=== PATIENT | female | born 1995 | race Caucasian/White ===

== ENCOUNTER 2024-06-05 19:04 | Emergency (ER) | payer BC, SELFPAY ==
[2024-06-05 19:06] VITALS: BP 140/102; PULSE 67; RESP 20; TEMP 36.6; O2SAT 99; BMI 31.8
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
[2024-06-05] MEDS: OXYCODONE 5MG IMMEDIATE RELEASE TABLET 5 MG PO (19:39)
[2024-06-05] MEDS: METHOCARBAMOL 500MG TABLET 500 MG PO (19:39)
[2024-06-05] MEDS: ACETAMINOPHEN 1,000MG/100ML VIAL 1000 MG IV (19:40)
[2024-06-05 20:17] VITALS: BP 146/100; PULSE 72; O2SAT 100
--- NOTE | 2024-06-05 20:17 | PC.NURSE ---
c spine cleared per er provider and c collar removed
[2024-06-05 21:42] VITALS: BP 144/91; PULSE 61; RESP 20; TEMP 36.7; O2SAT 98
== END 2024-06-05 21:44 | disposition home or self-care (01) ==
PROVIDERS: Emergency Provider Emergency Medicine
DX: S19.80XA Other specified injuries of unspecified part of neck, initial encounter (principal); M25.512 Pain in left shoulder; X50.0XXA Overexertion from strenuous movement or load, initial encounter
CPT/HCPCS: 70450; 72125; 72128; 73000; 73030; 96374; 99285; J0131

== ENCOUNTER 2024-07-01 16:56 | Outpatient (CLI) | payer BC, SELFPAY ==
--- NOTE | 2024-07-01 17:00 | MR_ITS ---
PROCEDURE INFORMATION: Exam: MR Left Upper Extremity Joint Without Contrast; Shoulder Exam date and time: 07/01/2024 4:58 PM Age: 28 years old Clinical indication: Pain; Shoulder; Left; Additional info: Left shoulder injury, pain, decreased rom. Weakness in arm TECHNIQUE: Imaging protocol: Magnetic resonance imaging of the left upper extremity without contrast. Exam focused on the shoulder. COMPARISON: CR XR SHOULDER LT MIN 2V 06/05/2024 7:40 PM FINDINGS: Bones/joints: There is bone marrow edema restricted to the distal clavicle with adjacent soft tissue swelling suggestive of distal clavicular osteolysis. Ac joint is fairly well preserved. Remaining osseous structures are unremarkable. Glenoid labrum: Unremarkable. No evidence of tear. Supraspinatus tendon: Unremarkable. No evidence of tear. Infraspinatus tendon: Unremarkable. No evidence of tear. Subscapularis tendon: Unremarkable. No evidence of tear. Teres minor tendon: Unremarkable. No evidence of tear. Tendon of biceps brachii: Unremarkable. No evidence of tear. Glenohumeral ligaments: Unremarkable. Soft tissues: Unremarkable. IMPRESSION: Findings suspicious for distal clavicular osteolysis as discussed above.
== END 2024-07-01 23:59 | disposition home or self-care (01) ==
LOC: RAD 16:56
PROVIDERS: PCP Nurse Practitioner Family; Visit Provider Nurse Practitioner Family
DX: M25.512 Pain in left shoulder (principal); M25.612 Stiffness of left shoulder, not elsewhere classified
CPT/HCPCS: 73221

== ENCOUNTER 2024-08-09 18:34 | Emergency (ER) | payer BC, OTHER, SELFPAY ==
[2024-08-09 19:15] VITALS: BP 135/93; PULSE 80; RESP 20; TEMP 36.9; O2SAT 98; BMI 33.0
[2024-08-09 19:18] LABS: Apearance,Urine Clear (Clear); Bilirubin,Urine Negative (Negative); Blood, Urine Negative (Negative); Color,Urine Yellow (Yellow); Glucose,Urine (UA) Negative (Negative); Ketones,Urine Negative (Negative); Protein,Urine Negative (Negative); Specific Gravity, Urine 1.025 (1.005-1.030); UTC Leukocyte Esterase,Urine Trace (Negative); UTC Nitrate,Urine Negative (Negative); Urobilinogen,Urine 0.2 EU/dl (0.2)
--- NOTE | 2024-08-09 19:18 | ED_ITS ---
Discharge Plan Disposition Patient Disposition: Home, Self-Care Condition: Good Prescriptions Prescriptions: New fluconazole 150 mg tablet 150 mg PO ONCE Qty: 1 3RF phenazopyridine [Pyridium] 200 mg tablet 200 mg PO Q8H 2 Days Qty: 6 0RF ciprofloxacin HCl [Cipro] 500 mg tablet 500 mg PO BID 7 Days Qty: 14 0RF ondansetron 4 mg Tablet,Disintegrating 4 mg PO Q8H PRN (Reason: Nausea) Qty: 12 0RF Referrals Follow up/Referrals: Nyla Funes APRN [Primary Care Provider] - See instructions Activity Restrictions/Add. Instructions Additional Instructions/Restrictions: Drink plenty of fluids. Take tylenol or ibuprofen for pain or fever. Take the medications as directed. Follow up with your regular doctor. GO TO THE ER FOR ANY WORSENING SYMPTOMS The pyridium will make your urine turn orange, this is an expected side effect. It will stain your clothes if it comes into contact with them. We will culture the urine. That will tell what bacteria is causing your infection and which antibiotics will treat it best.This test takes 3 days to complete. Clinical Impressions Clinical Impression: UTI (urinary tract infection) Instructions Patient Instructions: Urine Culture, DI for Urinary Tract Infection (UTI), Phenazopyridine Print Language Print Language: Upper Sorbian Discharge ED Provider: Franklin Narvaez [facility] General Stated complaint: possible uti Mode of Arrival: Ambulatory Source of Information: Patient Time Seen by Provider: 08/09/24 19:18 Description of Symptoms (Recalled from Triage Doc. by RN): UTI S/S, HAS BEEN TREATED MULT. TIMES FOR UTIS SINCE NOVEMBER HEENT Symptoms (Recalled from RN notes): No Resp Symptoms (Recalled from RN notes): No Skin Symptoms (Recalled from RN notes): No MS Symptoms (Recalled from RN notes): No Functional Status (Recalled from RN notes): WNL Related Data Previous Rx's ?Medication ?Instructions ?Recorded ciprofloxacin HCl 500 mg tablet 500 mg PO BID 7 days #14 tabs 08/09/24 (Cipro) fluconazole 150 mg tablet 150 mg PO ONCE 1 dose #1 tab 08/09/24 ondansetron 4 mg disintegrating 4 mg PO Q8H PRN Nausea #12 tabs 08/09/24 tablet phenazopyridine 200 mg tablet 200 mg PO Q8H 2 days #6 tabs 08/09/24 (Pyridium) Allergies Allergy/AdvReac Type Severity Reaction Status Date / Time amoxicillin (From Augmentin) Allergy Verified 07/11/24 10:17 clavulanic acid (From Allergy Verified 07/11/24 10:17 Augmentin) Worker's Comp Is this a Worker's Comp case?: No [facility] Disclaimer: The information contained in this section may have been updated after the patient was seen, as this information can be updated by other users. Surgical History History of appendectomy History of tubal ligation Hx of cholecystectomy Social History Smoking Status: Current every day smoker alcohol intake: never current occupational status: employed ROS Obtained: Yes All systems reviewed & no additional complaints except as documented Constitutional Constitutional: Reports system reviewed and no additional complaints, except as documented, Denies chills and Denies fever(s) Eyes Eyes: Denies eye discharge ENT Ears, Nose, Mouth, and Throat: Denies dysphagia, Denies sore throat and Denies throat swelling Cardiovascular Cardiovascular: Denies chest pain and Denies dyspnea Respiratory Respiratory: Denies chest congestion, Denies cough and Denies dyspnea Gastrointestinal Gastrointestingal: Denies abdominal pain, constipation, diarrhea, dysphagia, nausea or vomiting Genitourinary Female Genitourinary: Reports as per HPI, Reports dysuria, Reports urinary frequency, Denies urinary incontinence, Reports urinary hesitancy and Reports urinary urgency Musculoskeletal Musculoskeletal: Denies arthralgias and Reports back pain Integumentary/Breasts Skin/Breast: Denies rash Neurologic Neurologic: Denies paresthesias Allergic/Immunologic Allergic/Immunologic: Denies throat swelling Physical Exam General General appearance: alert and in no apparent distress Head Head exam: atraumatic and normocephalic Eye Eye exam: Present normal appearance, PERRL and EOMI ENT ENT exam: Present normal exam, mucous membranes moist, TM's normal bilaterally and normal external ear exam Neck Neck exam: Present normal inspection, full ROM and trachea midline; Absent tenderness, meningismus or lymphadenopathy Chest Chest inspection: Present normal inspection and symmetric chest wall rise; Absent tenderness Respiratory Respiratory exam: Present normal lung sounds bilaterally; Absent respiratory distress, wheezes or stridor Cardiovascular Cardiovascular exam: Present regular rate, normal rhythm and normal heart sounds Abdominal Exam Abdominal exam: Present soft and normal bowel sounds; Absent distention, tenderness, guarding, rebound, rigidity, incision, psoas sign, obturator sign, heel tap sign, Hopson's sign, Rovsing's sign or tenderness at McBurney's Point Extremities Exam Extremities exam: Present normal inspection, full ROM and normal capillary refill; Absent tenderness, edema, joint swelling, calf tenderness or cyanosis Back Exam Back exam: Present normal inspection and full ROM; Absent tenderness, CVA tenderness (R) or CVA tenderness (L) Neurological Exam Neurological exam: Present alert, oriented X3 and normal gait Psychiatric Psychiatric exam: Present normal affect and normal mood Skin Skin exam: Present warm, dry, intact and normal color Lymphatic Lymphatic Findings: no adenopathy Medical Decision Making Medical Records Medical records reviewed: No I reviewed the patient's medical records. Screening: Per USPSTF and CDC recommendations, given the prevalence of disease in our region, it is our hospital?s policy to screen for HIV and viral Hepatitis for all patients aged 18 and over and those with ongoing risk factors. Phillip Inquiry Pt receiving controlled substance: No Vital Signs: 08/09/24 19:15 Temperature 98.5 F Temperature Source Oral Pulse Rate [Left Radial] 80 Respiratory Rate 20 Blood Pressure [Left Arm] 135/93 H Blood Pressure Mean [Left Arm] 107 02 Sat by Pulse Oximetry 98 Lab Data Lab results reviewed: Yes I reviewed the patient's lab results. Orders (Tests/Meds): ORDERS Category Date Time Status Urine Culture Stat Micro 08/09/24 18:42 Received
[2024-08-09] MEDS: levoFLOXacin 500MG TAB 500 MG PO (19:48)
[2024-08-09 20:08] VITALS: BP 135/93; PULSE 80; RESP 20; TEMP 36.9
--- NOTE | 2024-08-12 10:53 | PC.NURSE ---
REVIEWED URINE CULTURE WITH Yadira KUMARI APRN. PATIENT CURRENTLY ON CIPRO, CHANGED TO MACROBID AT THIS TIME AND PATIENT NOTIFIED OF ANTIBIOTIC CHANGE AT THIS TIME.
== END 2024-08-09 20:20 | disposition home or self-care (01) ==
PROVIDERS: Emergency Provider Nurse Practitioner Family; PCP Nurse Practitioner Family
DX: N39.0 Urinary tract infection, site not specified (principal)
CPT/HCPCS: 81003; 87086; 87088; 87186; 99213; G0381

== ENCOUNTER 2024-09-10 12:26 | Emergency (ER) | payer BC, OTHER, SELFPAY ==
[2024-09-10 13:05] VITALS: BP 121/79; PULSE 86; RESP 18; TEMP 36.9; O2SAT 98; BMI 33.7
--- NOTE | 2024-09-10 13:16 | ED_ITS ---
Discharge Plan Disposition Patient Disposition: Home, Self-Care Condition: Good Prescriptions Prescriptions: New doxycycline hyclate 100 mg capsule 100 mg PO BID Qty: 20 0RF methylprednisolone [Medrol (Sam)] 4 mg tablets,dose pack See Rx Instructions .Route .COMPLEX 6 Days Qty: 21 0RF Rx Instructions: taper pack; Referrals Follow up/Referrals: Nyla Funes APRN [Primary Care Provider] - See instructions Activity Restrictions/Add. Instructions Additional Instructions/Restrictions: *Monitor Temp, Over the counter Motrin or Tylenol as directed/as needed Tylenol every 4 hours and Motrin every 6 hours (as long as your family doctor has told you that you can take it) for fever or pain. and straight to ER if unable to lower temp less than 101.0 after medication given *Warm salt water gargles may help to soothe the throat *Throat Lozenges? *Warm fluids like tea with honey may help to soothe the throat? *Sleep elevated *Humidifier/Vaporizer Follow up IMMEDIATELY for new or worsening symptoms or no Noticeable improvement over the next 48-72 hours. 911 for difficulty breathing or swallowing Clinical Impressions Clinical Impression: Sinusitis Instructions Patient Instructions: DI for Sinusitis, Sinusitis Print Language Print Language: Azeri Discharge ED Provider: Socorro Ochoa [facility] HPI General Stated complaint: ear pain in both ears Mode of Arrival: Ambulatory Source of Information: Patient Limitations: No Limitations Time Seen by Provider: 09/10/24 13:16 Description of Symptoms (Recalled from Triage Doc. by RN): PATIENT C/O BILATERAL EAR PAIN AND PRESSURE X 1 WEEK HEENT Symptoms (Recalled from RN notes): Yes Resp Symptoms (Recalled from RN notes): No Skin Symptoms (Recalled from RN notes): No MS Symptoms (Recalled from RN notes): No Functional Status (Recalled from RN notes): WNL History of Present Illness Provider Complaint: Patient states that she was having sinus pain and pressure for the last week and now having bilateral ear pain and pressure also States today it wasnt any better so she came in to get checked Related Data Previous Rx's ?Medication ?Instructions ?Recorded doxycycline hyclate 100 mg capsule 100 mg PO BID #20 caps 09/10/24 methylprednisolone 4 mg tablets in See Rx Instructions .Route 09/10/24 a dose pack (Medrol (Sam)) .COMPLEX 6 days #21 tabs Allergies Allergy/AdvReac Type Severity Reaction Status Date / Time amoxicillin (From Augmentin) Allergy Verified 07/11/24 10:17 clavulanic acid (From Allergy Verified 07/11/24 10:17 Augmentin) Worker's Comp Is this a Worker's Comp case?: No [facility] Disclaimer: The information contained in this section may have been updated after the patient was seen, as this information can be updated by other users. Surgical History History of appendectomy History of tubal ligation Hx of cholecystectomy Social History Smoking Status: Current every day smoker alcohol intake: never current occupational status: employed Travel in the last 8 weeks: None Have you lived/traveled outside US in past 30 days?: No Contact w/someone who lives/traveled outside US past 30 days?: No Exposure to someone with infectious disease in past 14 days?: No Do you have a fever (greater than 100.4 F or 38 C)?: No Have you tested positive for COVID-19: No Exposed to someone with COVID-19 in past 14 days?: No Do you have a sore throat?: No Do you have a cough?: No Do you have any weakness?: No Do you have any diarrhea?: No Are you experiencing any unusual bleeding?: No Do you have any muscle aches/pain?: No Do you have any abdominal pain?: No Are you experiencing loss of taste or smell?: No ROS Obtained: Yes All systems reviewed & no additional complaints except as documented and Yes Systems reviewed as appropriate & no additional complaints except as documented Constitutional Constitutional: Reports system reviewed and no additional complaints, except as documented and Reports as per HPI ENT Ears, Nose, Mouth, and Throat: Reports system reviewed and no additional complaints, except as documented, Reports as per HPI, Reports otalgia, Reports sinus pain and Reports sinus pressure Cardiovascular Cardiovascular: Reports system reviewed and no additional complaints, except as documented and Reports as per HPI Respiratory Respiratory: Reports system reviewed and no additional complaints, except as documented and Reports as per HPI Gastrointestinal Gastrointestingal: Reports system reviewed and no additional complaints, except as documented and as per HPI Physical Exam General General appearance: alert and in no apparent distress ENT ENT exam: Present mucous membranes moist Expanded ENT Exam TM/Canal exam: Bilateral TM: bulging (clear fluid noted no redness) Nose exam: Present sinus tenderness Throat exam: Present other (Pharyngeal erythema noted with PND) Respiratory Respiratory exam: Present normal lung sounds bilaterally; Absent respiratory distress or wheezes Cardiovascular Cardiovascular exam: Present regular rate, normal rhythm and normal heart sounds Abdominal Exam Abdominal exam: Present soft and normal bowel sounds; Absent distention or tenderness Neurological Exam Neurological exam: Present alert, oriented X3 and normal gait Medical Decision Making Medical Records Screening: Per USPSTF and CDC recommendations, given the prevalence of disease in our region, it is our hospital?s policy to screen for HIV and viral Hepatitis for all patients aged 18 and over and those with ongoing risk factors. Phillip Inquiry Pt receiving controlled substance: No Phillip was queried for this patient: No Vital Signs: 09/10/24 13:05 Temperature 98.5 F Temperature Source Oral Pulse Rate [Left Brachial] 86 Respiratory Rate 18 Blood Pressure [Left Arm] 121/79 Blood Pressure Mean [Left Arm] 93 Blood Pressure Source [Left Arm] Automatic Cuff Blood Pressure Position [Left Arm] Sitting 02 Sat by Pulse Oximetry 98 Oxygen Delivery Method Room Air Medical Decision Narrative: denies chance of
[2024-09-10 13:26] VITALS: BP 121/79; PULSE 86; RESP 18; TEMP 36.9; O2SAT 98
== END 2024-09-10 13:29 | disposition home or self-care (01) ==
PROVIDERS: Emergency Provider Nurse Practitioner; PCP Nurse Practitioner Family
DX: J01.90 Acute sinusitis, unspecified (principal); H92.03 Otalgia, bilateral; R09.81 Nasal congestion
CPT/HCPCS: 99212; G0381

== ENCOUNTER 2024-12-01 15:40 | Outpatient (CLI) | payer OTHER, SELFPAY | END 2024-12-01 23:59 | disposition home or self-care (01) | LOC: LAB.DROPOF 12-02 13:07 | PROVIDERS: PCP Student in an Organized Health Care Education/Training Program; Visit Provider Student in an Organized Health Care Education/Training Program | DX: R30.0 Dysuria (principal); N39.0 Urinary tract infection, site not specified; B96.20 Unspecified Escherichia coli [E. coli] as the cause of diseases classified elsewhere | CPT/HCPCS: 87086; 87088; 87186 ==

== ENCOUNTER 2024-12-20 10:43 | Emergency (ER) | payer OTHER, SELFPAY ==
[2024-12-20] VITALS (16 sets, daily range): BP systolic 116–143; BP diastolic 71–89; PULSE 65–85; RESP 16–18; TEMP 36.8; O2SAT 96–100; BMI 32.8
--- NOTE | 2024-12-20 10:55 | CT_ITS ---
FINAL REPORT TECHNIQUE: IV contrast enhanced exam This study was performed with techniques to keep radiation doses as low as reasonably achievable, (ALARA). Individualized dose reduction techniques using automated exposure control or adjustment of mA and/or kV according to the patient''s size were employed. CLINICAL HISTORY: R flank R cva pain subacute UTI COMPARISON: None FINDINGS: Abdomen: Hypodensity in the periphery of the upper pole of the right kidney is likely an area of local pyelonephritis. There is no evidence of renal abscess. No obstruction seen. The left kidney is unremarkable. The remaining solid organs are normal. Status post cholecystectomy. No bowel obstruction is present. There is no free air. No fluid collection is seen. There is no adenopathy. Pelvis: Presumed appendectomy. No bowel wall thickening is present. Uterus is unremarkable. There is a benign-appearing cyst in the left ovary measuring 18 mm. The right ovary is normal. There is no free fluid. No pelvic mass is seen. IMPRESSION: Hypodense area upper pole right kidney likely area of local pyelonephritis without renal abscess or obstruction. Reviewed, Interpreted and Dictated by Tita Krishnan MD Transcribed by Jocelyn Knox Authenticated and [facility]
--- NOTE | 2024-12-20 10:57 | ED_ITS ---
Discharge Plan Disposition Patient Disposition: Home, Self-Care Prescriptions Prescriptions: New cefdinir 300 mg capsule 300 mg PO BID 10 Days Qty: 20 0RF No Action phenazopyridine 100 mg tablet 100 mg PO TID PRN (Reason: pain) Qty: 6 0RF nitrofurantoin monohyd/m-cryst 100 mg capsule 100 mg PO Q12H 7 Days Qty: 14 0RF Rx Instructions: must administer with a meal/food Referrals Follow up/Referrals: Nyla Funes APRN [Primary Care Provider] - See instructions Len Reddy MD [Staff Physician] - See instructions Activity Restrictions/Add. Instructions Additional Instructions/Restrictions: At this time it was felt you are safe to be discharged home. If new or worsening symptoms please do not hesitate to return the emergency department. Please take your antibiotics as prescribed and call and schedule appointment with Dr. Reddy to make sure things are headed in the right direction and to address your frequent urinary tract infections. Clinical Impressions Clinical Impression: Pyelonephritis Instructions Patient Instructions: DI for Low Back Pain Print Language Print Language: Citizen Of [place] Discharge ED Provider: Brian Carlton General Adult HPI General Chief complaint: Back Pain/Injury Stated complaint: lower Rt side back pain Time Seen by Provider: 12/20/24 10:46 Mode of Arrival: Ambulatory Source of Information: Patient Description of Symptoms (Recalled from ER Triage Doc. by RN): pt presents to the er for L sided back pain, vomiting, and burning with urination that started around 7:30 this morning, hx kidney stones and uti, took pyrdium this am and tylenol prior to arrival, reports pain 6/10, constant, and a sharp pain History of Present Illness HPI narrative: Patient is a 29-year-old female with past medical history recurrent UTIs, previous kidney stone which required surgical intervention who presents emergency department for evaluation of right flank and right back pain. Patient was treated for urinary tract infection 3 weeks ago with Macrobid and she has had a dull achy pain in her right back that intermittently radiates down to her flank with intermittent jolt sensations in her superior pubic area. No significant dysuria no vaginal discharge or bleeding last menstrual period 4 weeks ago previous abdominal surgical history cholecystectomy and appendectomy. No trauma. Please note that above description of symptoms, in this electronic medical record under categorization of recalled from ER triage doctor by RN are reflective of an initial nursing assessment, however, is not reflective of my full history and physical exam that was personally taken and clarified. Consequentially, this preceding description of symptoms, which may include the patient's categorized chief complaint in the EMR, do not reflect my personal clinical impression, and the ultimate description of history of present illness and patient stated complaints should be deferred to this section of the note. Unless stated otherwise or congruent with this section of the note, additional signs, symptoms, or incongruence should be interpreted as inaccurate with my clinical impression. Related Data Previous Rx's ?Medication ?Instructions ?Recorded nitrofurantoin 100 mg PO Q12H 7 days #14 caps 12/01/24 monohydrate/macrocrystals 100 mg capsule phenazopyridine 100 mg tablet 100 mg PO TID PRN pain 6 doses #6 12/01/24 tabs cefdinir 300 mg capsule 300 mg PO BID UTI 10 days #20 caps 12/20/24 Allergies Allergy/AdvReac Type Severity Reaction Status Date / Time amoxicillin (From Augmentin) Allergy Intermediate hives Verified 12/01/24 15:34 clavulanic acid (From Allergy Verified 12/01/24 15:34 Augmentin) [facility] Disclaimer: The information contained in this section may have been updated after the patient was seen, as this information can be updated by other users. Medical History (Updated 12/20/24 @ 13:18 by Brian Carlton MD) Frequent UTI Surgical History History of appendectomy History of tubal ligation Hx of cholecystectomy Social History Smoking Status: Current every day smoker alcohol intake: never current occupational status: employed Travel in the last 8 weeks: None Have you lived/traveled outside US in past 30 days?: No Contact w/someone who lives/traveled outside US past 30 days?: No Exposure to someone with infectious disease in past 14 days?: No Do you have a fever (greater than 100.4 F or 38 C)?: No Have you tested positive for COVID-19: No Exposed to someone with COVID-19 in past 14 days?: No Do you have a sore throat?: No Do you have a cough?: No Do you have any weakness?: No Do you have any diarrhea?: No Are you experiencing any unusual bleeding?: No Do you have any muscle aches/pain?: No Do you have any abdominal pain?: No Are you experiencing loss of taste or smell?: No Other Medical History Have you received the Pneumonia Vaccine: No ROS Obtained: Yes Systems reviewed as appropriate & no additional complaints except as documented Physical Exam General General appearance: alert and in no apparent distress Head Head exam: atraumatic and normocephalic Eye Eye exam: Present PERRL and EOMI ENT ENT exam: Present mucous membranes moist Neck Neck exam: Present normal inspection Chest Chest inspection: Present normal inspection and symmetric chest wall rise Respiratory Respiratory exam: Present normal lung sounds bilaterally; Absent respiratory distress Cardiovascular Cardiovascular exam: Present regular rate and normal rhythm Abdominal Exam Abdominal exam: Present soft, tenderness (Mild, right upper quadrant) and other (CVA tenderness on the right) Extremities Exam Extremities exam: Present normal inspection Back Exam Back exam: Present normal inspection Neurological Exam Neurological exam: Present alert Psychiatric Psychiatric exam: Present normal affect Skin Skin exam: Present warm and dry Medical Decision Making Medical Records Screening: Per USPSTF and CDC recommendations, given the prevalence of disease in our region, it is our hospital?s policy to screen for HIV and viral Hepatitis for all patients aged 18 and over and those with ongoing risk factors. Phillip Inquiry Pt receiving controlled substance: No Vital Signs: 12/20/24 10:51 12/20/24 11:11 12/20/24 11:15 Temperature 98.3 F Temperature Source Oral Pulse Rate 73 68 Pulse Rate [Left Radial] 68 Respiratory Rate 16 18 18 Blood Pressure 129/78 121/88 Blood Pressure [Right Arm] 143/89 H Blood Pressure Mean 96 103 Blood Pressure Mean [Right Arm] 107 Blood Pressure Source [Right Arm] Automatic Cuff Blood Pressure Position [Right Arm] Sitting 02 Sat by Pulse Oximetry 98 98 98 Oxygen Delivery Method Room Air 12/20/24 11:30 12/20/24 12:00 12/20/24 12:30 Temperature Temperature Source Pulse Rate 65 67 69 Pulse Rate [Left Radial] Respiratory Rate 18 Blood Pressure 116/82 126/78 127/82 Blood Pressure [Right Arm] Blood Pressure Mean 94 104 Blood Pressure Mean [Right Arm] Blood Pressure Source [Right Arm] Blood Pressure Position [Right Arm] 02 Sat by Pulse Oximetry 98 100 98 Oxygen Delivery Method Room Air 12/20/24 12:45 12/20/24 13:00 12/20/24 13:15 Temperature Temperature Source Pulse Rate 78 71 75 Pulse Rate [Left Radial] Respiratory Rate Blood Pressure 122/76 128/80 121/83 Blood Pressure [Right Arm] Blood Pressure Mean Blood Pressure Mean [Right Arm] Blood Pressure Source [Right Arm] Blood Pressure Position [Right Arm] 02 Sat by Pulse Oximetry 99 98 97 Oxygen Delivery Method Room Air Room Air Room Air 12/20/24 13:30 12/20/24 13:45 12/20/24 14:00 Temperature Temperature Source Pulse Rate 75 73 75 Pulse Rate [Left Radial] Respiratory Rate 16 16 16 Blood Pressure 118/75 125/77 122/78 Blood Pressure [Right Arm] Blood Pressure Mean 89 97 92 Blood Pressure Mean [Right Arm] Blood Pressure Source [Right Arm] Blood Pressure Position [Right Arm] 02 Sat by Pulse Oximetry 98 99 98 Oxygen Delivery Method 12/20/24 14:15 Temperature Temperature Source Pulse Rate 81 Pulse Rate [Left Radial] Respiratory Rate 16 Blood Pressure 117/71 Blood Pressure [Right Arm] Blood Pressure Mean 84 Blood Pressure Mean [Right Arm] Blood Pressure Source [Right Arm] Blood Pressure Position [Right Arm] 02 Sat by Pulse Oximetry 98 Oxygen Delivery Method Lab Data Lab Results 12/20/24 10:55: Urine Color [place], Urine Appearance Clear, Urine pH 5.0, Ur Specific [place] 1.025, Urine Protein 2+ A, Urine Glucose (UA) 1+, Urine Ketones Trace, Urine Blood Negative, Urine Nitrate Positive A, Urine Bilirubin Negative, Urine Urobilinogen >=8.0, Ur Leukocyte Esterase 1+ A, Urine RBC Occasional, Urine WBC Occasional, Ur Squamous Epith Cells 3-5, Urine Bacteria 2+ 12/20/24 11:11: WBC 9.1, RBC 4.55, Hgb 13.7, Hct 40.8, MCV 89.7, MCH 30.1, MCHC 33.6, RDW 12.2, Plt Count 250, MPV 10.5 H, Neut % (Auto) 65.4, Lymph % (Auto) 26.6, [place] % (Auto) 6.7, Eos % (Auto) 0.4, Baso % (Auto) 0.4, Neut # (Auto) 6.0, Lymph # (Auto) 2.4, [place] # (Auto) 0.6, Eos # (Auto) 0.0, Baso # (Auto) 0.0, Sodium 142, Potassium 3.9, Chloride 106, Carbon Dioxide 26, Anion Gap 13.9, BUN 13, Creatinine 0.80, Estimated Creat Clear 126, Estimated GFR 85, Est GFR ( Amer) 103, Glucose 94, Calcium 9.6, Total Bilirubin 0.5, AST 48 H, ALT 139 H, Alkaline Phosphatase 89, Total Protein 8.2, Albumin 4.7, Globulin 3.5 H, Albumin/Globulin Ratio 1.3, Lipase 43, Serum HCG, Qual Negative, HCV Ab ERICK w/Rflx PCR Qn Negative, HIV Ag/Ab Combo Qual Negative 12/20/24 11:11 12/20/24 11:11 Orders (Tests/Meds): ED MEDICATIONS Discontinued Medications Generic Name Dose Route Start Last Admin Trade Name Freq PRN Reason Stop Dose Admin Acetaminophen 1,000 mg 12/20/24 10:55 12/20/24 11:00 Acetaminophen 500mg Tab PO 12/20/24 10:56 1,000 mg ONCE ONE Administration Lactated Ringer's 500 mls @ 999 mls/hr 12/20/24 10:56 12/20/24 11:00 Lactated Ringer's 500ml IV 12/20/24 11:26 999 mls/hr .Q31M ONE Administration Ceftriaxone Sodium 1 gm/ 50 mls @ 100 mls/hr 12/20/24 13:15 12/20/24 13:17 Sodium Chloride IV 12/30/24 13:14 100 mls/hr Q24H MARIO Administration Iopamidol 75 ml 12/20/24 11:45 12/20/24 11:46 Iopamidol-370 (76%);100ml Bottle IV 12/20/24 11:46 75 ml ONCE ONE Administration Ketorolac Tromethamine 30 mg 12/20/24 10:55 12/20/24 11:00 Ketorolac 30mg/Ml Vial IV 12/20/24 10:56 30 mg ONCE ONE Administration Ondansetron HCl 4 mg 12/20/24 10:55 12/20/24 11:00 Ondansetron 4mg/2ml Vial IV 12/20/24 10:56 4 mg ONCE ONE Administration Sodium Chloride 10 ml 12/20/24 11:45 12/20/24 11:46 Sodium Chloride 0.9% 10ml Syr (Rad Only) IV 12/20/24 11:46 10 ml ONCE ONE Administration ORDERS Category Date Time Status CT abdomen pelvis w con Stat Cat Scan 12/20/24 10:55 Completed CBC w/Auto Diff [Complete Blood Count Auto Diff] Stat Lab 12/20/24 11:11 Completed CMP [Comprehensive Metabolic Panel] Stat Lab 12/20/24 11:11 Completed HCG Qualitative, Serum Stat Lab 12/20/24 11:11 Completed HIV Combo Stat Lab 12/20/24 11:11 Completed Hepatitis C Ab Qual. W/ RFX Stat Lab 12/20/24 11:11 Completed Lipase Stat Lab 12/20/24 11:11 Completed UA [Urinalysis and Microscopic] Stat Lab 12/20/24 10:55 Completed Urine Culture Stat Micro 12/20/24 10:55 Received Medical Decision Narrative: In summary patient is a 29-year-old female past medical history described above presents emergency department for evaluation of right flank pain in the setting of recurrent urinary tract infections and previous kidney stone. Patient is hemodynamically stable nontoxic-appearing upon arrival, appearing uncomfortable, afebrile. Differential diagnosis includes refractory urinary tract infection, ureteritis, pyelonephritis, ureterolithiasis, among others. Workup will be conducted with hematologic labs, CT abdomen pelvis IV contrast. Initial inventions include multimodal pain control, crystalloid resuscitation. Initial workup reviewed by me, no significant leukocytosis or anemia no KAPIL or critical electrolyte abnormality, mild nonactionable transaminitis without hyperbilirubinemia no elevated lipase hCG negative. Urinalysis interpreted by me and consistent with infection with proteinuria for which a gram of ceftriaxone will be given and patient will be monitored given her history of rash to amoxicillin. The patient was placed in observation status at 1:45 PM. Medical necessity for observational status is monitoring drug ministration for allergic reaction. The patient was provided serial reevaluations while awaiting results. Repeat evaluation patient had no rash no vomiting no shortness of breath. Given this patient is appropriate for outpatient management on cefdinir at this time. Total time in observation was 63 minutes. Critical Care Critical Care Time Critical Care Time: No
[2024-12-20] MEDS: RINGERS SOLUTION,LACTATED 500 ML 999 ML IV (11:00)
[2024-12-20] MEDS: KETOROLAC 30MG/ML VIAL 30 MG IV (11:00)
[2024-12-20] MEDS: ONDANSETRON 4MG/2ML VIAL 4 MG IV (11:00)
[2024-12-20] MEDS: ACETAMINOPHEN 500MG TAB 1000 MG PO (11:00)
[2024-12-20 11:12] LABS: Microscopic, Urine URINE MICROSCOPIC (MICROSCOPIC)
[2024-12-20 11:15] LABS: Appearance,Urine CLEAR (Clear); Bilirubin,Urine Negative (Negative); Blood, Urine Negative (Negative); Color,Urine ORANGE (Yellow); Glucose,Urine (UA) 1+ (Negative); Ketones,Urine TRACE (Negative); Leukocyte Esterase,Urine 1+ (Negative); Nitrate,Urine POSITIVE (Negative); Protein,Urine 2+ (Negative); Specific Gravity, Urine 1.025 (1.005-1.030); Urobilinogen,Urine >=8.0 EU/dl (0.2)
[2024-12-20 11:21] LABS: Basophils % 0.4 % (0.1-2.0); Eosinophils % 0.4 % (0.1-12.0); Hematocrit 40.8 % (37.0-47.0); Hemoglobin 13.7 g/dL (12.2-16.2); Lymphocytes # 2.4 K/mm3 (0.7-4.5); Lymphocytes % 26.6 % (10-50); Mean Corpuscular HGB Conc 33.6 g/dL (31.8-35.4); Mean Corpuscular Hemoglobin 30.1 pg (27.0-31.2); Mean Corpuscular Volume 89.7 fl (81-99); Mean Platelet Volume 10.5 fl (7.4-10.4); Monocytes # 0.6 K/mm3 (0.1-1.0); Monocytes % 6.7 % (1.7-9.3); Neutrophils % 65.4 % (37.0-80.0); Nucleated Red Blood Cells # 0 10^3/uL; Nucleated Red Blood Cells % 0 %; Platelet Count 250 K/mm3 (142-424); Red Blood Count 4.55 M/mm3 (4.20-5.40); Red Cell Distribution Width 12.2 % (11.5-17.5); Red Cell Distribution Width-SD 39.8 fL; White Blood Count 9.1 K/mm3 (4.8-10.8)
[2024-12-20 11:25] LABS: Chloride 106 mmol/L (98-107)
[2024-12-20 11:26] LABS: Albumin Level 4.7 g/dl (3.5-5.0); Potassium 3.9 mmoL/L (3.5-5.1); Sodium 142 mmol/L (136-145)
[2024-12-20 11:29] LABS: Alanine Aminotransferase 139 U/L (12-78); Albumin/Globulin Ratio 1.3 (1.1-1.8); Alkaline Phosphatase 89 U/L (38-126); Anion Gap 13.9 mEq/L (5-15); Aspartate Amino Transferase 48 U/L (14-36); Bilirubin,Total 0.5 mg/dl (0.2-1.3); Blood Urea Nitrogen 13 mg/dl (7-17); Calcium 9.6 mg/dl (8.4-10.2); Carbon Dioxide 26 mmol/L (22.0-30.0); Creatinine Clearance Estimated 126 mL/min (50-200); Estimated Glomerular Filt Rate 85 ml/min (>60); GFR (African American) 103 ML/MIN (>60); Globulin 3.5 g/dL (1.3-3.2); Glucose 94 mg/dl (74-100); Lipase 43 U/L (23-300); Total Protein,Serum 8.2 g/dl (6.3-8.2)
[2024-12-20 11:30] LABS: Bacteria,Urine 2+ /lpf; RBC,Urine Occasional #/hpf (0-3); WBC,Urine Occasional #/hpf (0-3)
[2024-12-20 11:40] LABS: HCG Qualitative, Serum Negative (Negative)
--- NOTE | 2024-12-20 11:43 | PC.NURSE ---
pt transported to ct via wc
[2024-12-20] MEDS: IOPAMIDOL-370 (76%);100ML BOTTLE 75 ML IV (11:46)
[2024-12-20] MEDS: SODIUM CHLORIDE 0.9% 10ML SYR (RAD ONLY) 10 ML IV (11:46)
[2024-12-20 12:22] LABS: HIV Combo NEGATIVE (Negative)
[2024-12-20 12:29] LABS: Hepatitis C Ab Qual. W/ RFX NEGATIVE (Negative)
[2024-12-20] MEDS: CEFTRIAXONE 1 GM 1 GM in 0.9 % SODIUM CHLORIDE 50 ML IV (13:17)
--- NOTE | 2024-12-20 13:57 | PC.NURSE ---
per dr crockett he only wants 1g rocephin given to pt. dc other order
== END 2024-12-20 14:58 | disposition home or self-care (01) ==
PROVIDERS: Emergency Provider Emergency Medicine; PCP Nurse Practitioner Family
DX: N10 Acute pyelonephritis (principal)
CPT/HCPCS: 74177; 80053; 81001; 83690; 84703; 85025; 86803; 87086; 87389; 96361; 96374; 96375; 99285; J0696; J1885; J2405; J7120; Q9967

== ENCOUNTER 2025-01-06 15:27 | Outpatient (CLI) | payer OTHER, SELFPAY | END 2025-01-06 23:59 | disposition home or self-care (01) | LOC: LAB.DROPOF 15:28 | PROVIDERS: PCP Urology; Visit Provider Urology | DX: N30.01 Acute cystitis with hematuria (principal) | CPT/HCPCS: 87798; 87801 ==

== ENCOUNTER 2025-01-24 10:26 | Day surgery (SDC) | payer OTHER, SELFPAY ==
[2025-01-22 16:02] VITALS: BMI 33.5
[2025-01-24 10:37] VITALS: BP 144/90; PULSE 75; RESP 16; TEMP 36.3; O2SAT 97
[2025-01-24] MEDS: 0.9 % SODIUM CHLORIDE 500 ML 25 ML IV (11:10)
--- NOTE | 2025-01-24 11:11 | [facility].PROCNOTE ---
[facility] Procedure Note Date: 01/24/25 Time: 11:11 Procedure Note:: Chart review: The patient is troubled with recurrent UTI; stress urinary incontinence; and overactive bladder. She has been using Estrace vaginal cream finger technique and oxybutynin. She feels that her overactive bladder is better. Preop diagnosis recurrent UTI; overactive bladder; KISHOR Postop diagnosis: Significant urethritis Operative note: The patient was brought to the cystoscopy suite. She is prepped and draped in the standard fashion. She underwent catheterization for culture and sensitivity. She then underwent flexible cystoscopy. Her urethra is tender concerning the cystoscope. Her urethra shows significant urethral this with pseudo polyps noted. The patient's bladder itself is [place] pink in color throughout without evidence of bladder stone tumor hemorrhage or infection. The ureteral orifice ease are normal bilaterally with clear E flux of urine. She otherwise tolerated the procedure well.
[2025-01-24 11:15] VITALS: BP 112/80; PULSE 63; RESP 16; TEMP 36.4; O2SAT 99
== END 2025-01-24 11:25 | disposition home or self-care (01) ==
PROVIDERS: PCP Nurse Practitioner Family; Visit Provider Urology
PROC: 0TJB8ZZ Inspection of Bladder, Via Natural or Artificial Opening Endoscopic (ICD-10-PCS; CPT 52000; principal; 2025-01-24 11:30)
DX: N39.0 Urinary tract infection, site not specified (principal); N39.3 Stress incontinence (female) (male); N32.81 Overactive bladder; N34.2 Other urethritis
CPT/HCPCS: 52000

== ENCOUNTER 2025-03-03 11:58 | Outpatient (CLI) | payer OTHER, SELFPAY ==
--- NOTE | 2025-03-03 12:00 | CT_ITS ---
FINAL REPORT TECHNIQUE: Axial CT of the abdomen and pelvis, without and with IV contrast. This study was performed with techniques to keep radiation doses as low as reasonably achievable, (ALARA). Individualized dose reduction techniques using automated exposure control or adjustment of mA and/or kV according to the patient's size were employed. CLINICAL HISTORY: stones, RIGHT SIDED PAIN COMPARISON: 12/20/2024 FINDINGS: Abdomen: Lung bases are clear. Liver has an unremarkable CT appearance. The spleen, pancreas and adrenal glands are unremarkable. Precontrast imaging shows no renal stone disease. Postcontrast imaging of the kidneys shows no mass or obstruction. There is minimal scarring in the upper pole of the right kidney, that is likely the sequela of prior infection. Moderate fecal impaction is present. No adenopathy is noted. No evidence of ascites is present. Pelvis: The appendix is presumed resected. Tubal ligation clips are present. Pelvic bowel loops are unremarkable. No fluid collection or adenopathy is seen. The uterus is unremarkable in appearance. IMPRESSION: Minimal scarring of the upper pole of the right kidney without evidence of upper urinary tract obstruction or stone disease. Reviewed, Interpreted and Dictated by Tita Krishnan MD Transcribed by Milly Gallo Authenticated and [facility]
[2025-03-03] MEDS: SODIUM CHLORIDE 0.9% 10ML SYR (RAD ONLY) 10 ML IV (12:21)
[2025-03-03] MEDS: IOPAMIDOL-370 (76%);100ML BOTTLE 75 ML IV (12:22)
--- OUTSIDE RECORDS SUMMARY | 2025-03-03 12:27 | XMS_ITS | Encounter Summary ---
Author Organization Healthcare Address [address] [place] [address] Care Team Providers Care Photograph Editor Name Role Phone Emily Covington APRN Primary Care Provider [phone] Encounter Details Date Type Department Care Team (Late st Contact Info) Description 10/22/2021 Outside Procedure External Location [address] [place] [address] Caitlin Reeves, DO [address] [place] [address] Social History Tobacco Use Types Packs/Day Years Used Date Smoking Tobacco: Former Comments Unknown Sex and Gender Information Value Date Recorded Sex Assigned at Not on file Legal Sex Female 6:05 PM EDT Gender Identity Not on file Sexual Orientation Not on file documented as of this encounter Plan of Treatment Not on file documented as of this encounter Procedures Procedure Name Priority Date/Time Associated Diagnosis Comments XR FOOT RIGHT 3+ VIEWS 10/22/2021 3:35 PM EST documented in this encounter Results * XR Foot Right 3+ Views (10/22/2021 3:35 PM EST) Anatomical Region Laterality Modality Lower Extremities, Foot Right Radiogra phic Imaging 10/22/2021 3:35 PM EST Narrative 10/22/2021 4:51 PM EST [address] [address] Name: CALEB BYRNE Exam Date: 10/22/2021 : 1995 Age 26 Gender: F Physician: CAITLIN REEVES Facility: [facility] Facility HSV: Outpatient Exam: FOOT RT 3V Right foot History: Right foot pain. Fall yesterday. Findings: 3 views were obtained. No acute fracture or dislocation is identified. Joint spaces are maintained. Soft tissue is unremarkable. Impression: No acute bony abnormality. Films reviewed , interpreted and dictated by Dr. Cande Sunshine. Transcribed by Elder Chris PA-C. Dictated By: Kristine Burnett Transcribed By: Kristine Sunshine Transcribed On: 10/22/2021 4:36 PM Electronically signed by: Kristine Burnett 10/22/2021 Thank you for referring CALEB BYRNE to [facility]. Legally authenticated by ARIANNA VENEGAS 2021-10-22 16:36:24 Procedure Note Provider, Generic [place] - 10/22/2021 [place] [address] Name: CALEB BYRNE Exam Date: 10/22/2021 : 1995 Age 26 Gender: F Physician: CAITLIN REEVES Facility: [facility] Facility HSV: Outpatient Exam: FOOT RT 3V Right foot History: Right foot pain. Fall yesterday. Findings: 3 views were obtained. No acute fracture or dislocation is identified.Joint spaces are maintained. Soft tissue is unremarkable. Impression: No acute bony abnormality. Films reviewed , interpreted and dictated by Dr. Cande Sunshine. Transcribed by Elder Chris PA-C. Dictated By: Kristine Burnett Transcribed By: Kristine Sunshine Transcribed On: 10/22/2021 4:36 PM Electronically signed by: Kristine Burnett 10/22/2021 Thank you for referring CALEB BYRNE to [facility]. Legally authenticated by ARIANNA VENEGAS 2021-10-22 16:36:24 us Caitlin Reeves DO IMG XR PROCEDURES Final Resu lt documented in this encounter Visit Diagnoses Not on filedocumented in this encounter Additional Health Concerns Infection Onset Date Last Indicated Resolved Time COVID-19 Rule-Out 02/02/2022 02/02/2022 02/02/2022 2:26 PM EDT documented as of this encounter Care Teams Photograph Editor Relationship Specialty Start Date End Date Emily Covington APRN [address] [place] [address] PCP - General 01/22/21 11/22/23 documented as of this encounter
--- OUTSIDE RECORDS SUMMARY | 2025-03-03 12:27 | XMS_ITS | Patient Health Record ---
Author Organization [facility] Address [address] [place] [address] Care Team Providers Care Wet Mixer Name Role Phone Unknown, PCP Primary Care Provider Unavailabl e Reason For Referral No Information Medications Medication SIG (Take, Route, Frequency, Duration) Notes Start Date End Date Status Wellbutrin SR 150 MG 1 tab po daily Active Michelle Allergy *Please review a nd pick correct strength-formulation from [employer] options. If intended option is not shown, discontinue and re-order from Quick Search* Active busPIRone HCl 10 MG 1 tab(s) orally 2 times a day Active Plan Of Treatment No Information Insurance Providers Payer Name Payer Address Payer Phone Subscriber Number Group Number Insured Name Patient Relationship to Insured Coverage Start Date Coverage End Date JUMA [facility] [address] [place] [address] [phone] [id number] EA Pratima Pérez Self - patient is the insured Medical (General) History Surgical History Surgery Date(Month/Year) bilateral tubal gallbladder appy
--- OUTSIDE RECORDS SUMMARY | 2025-03-03 12:27 | XMS_ITS | Clinical Summary ---
Author Organization Healthcare Address [address] [place] [address] Care Team Providers Care Laboratory Scientist Name Role Phone Unavailable Primary Care Provider Unavailabl e Allergies Active Allergy Reactions Criticality Noted Date Comments Amoxicillin-Pot Clavulanate Hives,Unknow n - Patient states they do not know rxn details Medium 02/20/2017 Medications busPIRone (Buspar) 10 MG tablet TAKE 1 TABLET BY MOUTH AT BEDTIME 30 tablet 1 03/24/2021 Active Immunizations Immunization Administration Dates Next Due Influenza, injectable, quadrivalent 07/07/2017 Influenza, injectable, quadrivalent, preservativ e free 06/25/2018 [facility] COVID-19 Vaccine (Purple Cap) 12 + 10/09/2020 Social History Tobacco Use Types Packs/Day Years Used Date Smoking Tobacco: Former Comments Unknown Sex and Gender Information Value Date Recorded Sex Assigned at Not on file Legal Sex Female 6:05 PM EDT Gender Identity Not on file Sexual Orientation Not on file Last Filed Vital Signs Vital Sign Reading Time Taken Comments Blood Pressure 112/72 02/02/2022 5:10 PM EDT Pulse 87 02/02/2022 5:10 PM EDT Temperature 37.1 C (98.7 F) 02/02/2022 5:10 PM EDT Respiratory Rate 17 02/02/2022 5:10 PM EDT Oxygen Saturation 97% 02/02/2022 5:10 PM EDT Inhaled Oxygen Concentration - - Weight 82.7 kg (182 lb 5.1 oz) 02/02/2022 1:09 P M EDT Height 152.4 cm (5') 05/26/2020 1:08 PM EDT Body Mass Index 35.61 05/26/2020 1:08 PM EDT Plan of Treatment Health Maintenance Due Date Last Done Comments [facility]-Depression Screening 1996 [facility]-/Child/Adol SDOH Screenings 1996 [facility]-Hepatitis B Vaccines (2 of 3 - 3-dose series) 09/12/1997 08/15/1997 [facility]- SDOH Screenings 2014 [facility]Y-Adult SDOH Screenings 2014 [facility]Y-Pap Smear 2017 [id number] Vaccine ( season) 2024 08/04/2021, 10/09/2020, 09/18/2020 [facility]-Influenza Vaccine (Season Ended) 2025 06/11/2021, 06/25/2018, 07/07/2017 [facility]Y-DTaP,Tdap,and Td Vaccines (3 - Td or Tdap) 02/12/2031 02/12/2021, 11/15/2007 [facility]Y-Zoster Vaccines (1 of 2) 2046 10/08/2021, 03/19/2021, 02/18/2021, Additional history exists HPV Vaccines Completed 12/10/2008, 07/12, 05/19/2008 [facility]-Hepatitis A Vaccines Aged Out 021, 08/18/2021, 02/12/2021 No longer eligible based on patient's age to complete this topic [facility]Y-Varicella Vaccines Completed 2, 03/19/2021, 02/18/2021, Additional history exists UKY-HIB Vaccines Aged Out No longer e ligible based on patient's age to complete this topic UKY-IPV Vaccines Aged Out No longer e ligible based on patient's age to complete this topic UKY-Pneumococcal Vaccine: Pediatrics (0 to 5 Years) and At-Risk Patients (6 to 49 Years) Aged Out No longer eligible based on patient's age to complete this topic UKY-Rotavirus Vaccines Aged Out No lo nger eligible based on patient's age [place] [address] [facility]
--- OUTSIDE RECORDS SUMMARY | 2025-03-03 12:27 | XMS_ITS | Patient Health Record ---
Author Organization [facility] Address [address] [facility] [address] [place] [address] Care Team Providers Care Location Man Name Role Phone Alexa Fowler Unavailable [phone] Allergies Allergen (clinical drug ingredient) Drug/Non Drug Allergy documented on EMR Reaction Allergy Type Onset Date Status amoxicillin / clavulanate Augmentin rash Drug Allergy Active Reason For Referral No Information Medications Medication SIG (Take, Route, Frequency, Duration) Notes Start Date End Date Status Phentermine HCl 37.5 MG Tablet 1 tablet Orally Once a day; Duration: 30 days 09/22/2022 Active Sulfamethoxazole-Trimetho prim 800-160 MG Tablet TAKE 1 TABLET BY ORAL ROUTE TWICE DAILY X 3 DAYS Oral; Duration: 3 Not-Taking/PRN Nitrofurantoin Macrocrystal 50 MG Capsule TAKE 1 CAPSULE BY MOUTH EVERY DAY WITH FOOD OR MILK Oral; Duration: 30 Not-Taking/IL N Levocetirizine Dihydrochloride 5 MG Tablet 1 tablet in the evening Orally Once a day; Duration: 30 day(s) 12/15/2021 Active Flonase Allergy Relief 50 MCG/ACT Suspension 1 spray in each nostril Nasally Once a day; Duration: 30 day(s) 12/15/2021 Active busPIRone HCl 10 MG Tablet 1 tablet Orally once daily; Duration: 90 days 12/15/2021 Active Social History Tobacco Use: Social History Observation Description Date Details (start date - stop date) Current Smoker NA - NA Social History Drugs/Alcohol: Social Info Question Answer Notes Drugs Have you used drugs other than those for medical reasons in the past 12 months? No Alcohol Screen Did you have a drink containing alcohol in the past year? No Points 0 Interpretation Negative Tobacco Use: Social Info Question Answer Notes Tobacco Use/Smoking Are you a current smoker How often do you smoke cigarettes? every day Problems Problem Type SNOMED Code ICD Code Onset Dates Problem Status W/U Status Risk Notes Problem Obesity (346105060) Obesity (BMI 35.0-39.9 without comorbidity) (E66.9) Active confirmed Plan Of Treatment No Information Insurance Providers Payer Name Payer Address Payer Phone Subscriber Number Group Number Insured Name Patient Relationship to Insured Coverage Start Date Coverage End Date Chrystal PPO [address] [place] [address] [id number] Len Foss Spouse - patient is the spouse of the insured Medical (General) History Medical History History ICD Code Anxiety Depression Blood Transfusion Kidney Stones Surgical History Surgery Date(Month/Year) Gallbladder Removed Appendectomy Laparoscope
[2025-03-03 14:39] LABS: Microscopic,Cath URINE MICROSCOPIC (MICROSCOPIC)
[2025-03-03 15:22] LABS: Appearance,Urine/Cath CLEAR (Clear); Bilirubin,Cath Negative (Negative); Blood, Urine/Cath Negative (Negative); Color,Urine/Cath YELLOW (Yellow); Glucose,Urine/Cath (UA) Negative (Negative); Ketones,Urine/Cath Negative (Negative); Leukocyte Esterase,Cath Negative (Negative); Nitrate,Cath Negative (Negative); Protein,Urine/Cath Negative (Negative); Urobilinogen,Cath 0.2 EU/dl (0.2)
[2025-03-03 15:41] LABS: Bacteria,Urine/Cath TRACE /lpf
[2025-03-03 17:25] LABS: Basophils % 0.3 % (0.1-2.0); Eosinophils % 0.3 % (0.1-12.0); Hematocrit 39.4 % (37.0-47.0); Hemoglobin 12.6 g/dL (12.2-16.2); Immature Granulocytes # 0.05 10^3uL; Immature Granulocytes % 0.4 %; Lymphocytes # 3.4 K/mm3 (0.7-4.5); Lymphocytes % 29.2 % (10-50); Mean Corpuscular Hemoglobin 28.5 pg (27.0-31.2); Mean Corpuscular Volume 89.1 fl (81-99); Mean Platelet Volume 10.7 fl (7.4-10.4); Monocytes # 0.7 K/mm3 (0.1-1.0); Monocytes % 6.2 % (1.7-9.3); Neutrophils # 7.3 K/mm3 (1.8-7.8); Neutrophils % 63.6 % (37.0-80.0); Nucleated Red Blood Cells # 0 10^3/uL; Nucleated Red Blood Cells % 0 %; Platelet Count 241 K/mm3 (142-424); Red Blood Count 4.42 M/mm3 (4.20-5.40); Red Cell Distribution Width 12.1 % (11.5-17.5); Red Cell Distribution Width-SD 39.6 fL; White Blood Count 11.5 K/mm3 (4.8-10.8)
== END 2025-03-03 23:59 | disposition home or self-care (01) ==
PROVIDERS: PCP Nurse Practitioner Family; Visit Provider Urology
DX: N28.89 Other specified disorders of kidney and ureter (principal); N39.0 Urinary tract infection, site not specified
CPT/HCPCS: 36415; 74178; 81001; 85025; 87086; Q9967

== ENCOUNTER 2025-04-25 08:08 | Outpatient (CLI) | payer OTHER, SELFPAY ==
--- OUTSIDE RECORDS SUMMARY | 2025-04-25 08:12 | XMS_ITS | Patient Health Record ---
Author Organization [facility] Address [address] [facility] [address] [place] [address] Care Team Providers Care Assistant Produce Manager Name Role Phone Alexa Fowler Unavailable [phone] Allergies Allergen (clinical drug ingredient) Drug/Non Drug [...] WITH FOOD OR MILK Oral; Duration: 30 Not-Taking/VT N Levocetirizine Dihydrochloride 5 MG Tablet 1 [...] Status W/U Status Risk Notes Problem Obesity (396914223) Obesity (BMI 35.0-39.9 without comorbidity) (E66.9) Active confirmed Plan Of Treatment No Information Insurance Providers Payer Name Payer Address Payer Phone Subscriber Number Group Number Insured Name Patient Relationship to Insured Coverage Start Date Coverage End Date Chrystal PPO [address] [place] [address] [id number] Len Foss Spouse - patient is the spouse of the insured Medical (General) History Medical History History ICD Code Anxiety Depression Blood Transfusion Kidney Stones Surgical History Surgery Date(Month/Year) Gallbladder Removed Appendectomy Laparoscope
--- OUTSIDE RECORDS SUMMARY | 2025-04-25 08:12 | XMS_ITS | Patient Health Record ---
Author Organization [facility] Address [address] [place] [address] Care Team Providers Care Piece Work Inspector Name Role Phone Unknown, PCP Primary Care Provider Unavailabl e Reason For Referral No Information Medications Medication SIG (Take, Route, Frequency, Duration) Notes Start Date End Date Status Wellbutrin SR 150 MG 1 tab po daily Active Michelle Allergy *Please review a nd pick correct strength-formulation from [employer] options. If intended option is not shown, discontinue and re-order from Quick Search* Active busPIRone HCl 10 MG 1 tab(s) orally 2 times a day Active Plan Of Treatment No Information Insurance Providers Payer Name Payer Address Payer Phone Subscriber Number Group Number Insured Name Patient Relationship to Insured Coverage Start Date Coverage End Date J[facility]MA [facility] [address] [place] [address] [id number] EA Pratima Pérez Self - patient is the insured Medical (General) History Surgical History Surgery Date(Month/Year) bilateral tubal gallbladder appy
--- OUTSIDE RECORDS SUMMARY | 2025-04-25 08:13 | XMS_ITS | Clinical Summary ---
Author Organization Healthcare Address [address] [place] [address] Care Team Providers Care Box Covering Machine Operator Name Role Phone Unavailable Primary Care Provider [...] Influenza, injectable, quadrivalent, preservativ e free 06/25/2018 [employer] COVID-19 Vaccine (Purple Cap) 12 + 10/09/2020 [...] Date Last Done Comments [facility]-Depression Screening 1996 [facility]-Infant/Child/Adol SDOH Screenings 1996 [facility]-Hepatitis B Vaccines (2 of 3 - 3-dose series) 09/12/1997 08/15/1997 [facility]- SDOH Screenings 2014 [facility]-Adult SDOH Screenings 2014 [facility]-Pap Smear 2017 [id number] Vaccine ( season) 2024 08/04/2021, 10/09/2020, 09/18/2020 [facility]-Influenza Vaccine (#1) 05/12/202506/11, 06/25/2018, 07/07/2017 [facility]-DTaP,Tdap,and Td Vaccines (3 - [...] age to complete this [place] [address] [facility]
--- OUTSIDE RECORDS SUMMARY | 2025-04-25 08:14 | XMS_ITS | Encounter Summary ---
Author Organization Healthcare Address [address] [place] [address] Care Team Providers Care Turf Sales Person Name Role Phone Emily Covington APRN Primary Care Provider [phone] Encounter Details Date Type Department Care Team (Late st Contact Info) Description 10/22/2021 Outside Procedure External Location [address] [place] [address] Caitlin Reeves, DO [address] [place] [address] Social History Tobacco Use Types Packs/Day Years [...] PM EST Narrative 10/22/2021 4:51 PM EST [address] [address] Name: CALEB BYRNE Exam Date: 10/22/2021 : 1995 Age 26 Gender: F Physician: CAITLIN REEVES Facility: [facility] Facility HSV: Outpatient Exam: FOOT RT 3V [...] for referring CALEB BYRNE to [facility]. Legally authenticated by ARIANNA VENEGAS 2021-10-22 16:36:24 Procedure Note Provider, Generic [place] - 10/22/2021 [place] [address] Name: CALEB BYRNE Exam Date: 10/22/2021 : 1995 Age 26 Gender: F Physician: CAITLIN REEVES Facility: [facility] Facility HSV: Outpatient Exam: FOOT RT 3V [...] for referring CALEB BYRNE to [facility]. Legally authenticated by ARIANNA VENEGAS 2021-10-22 16:36:24 us Caitlin Reeves DO IMG XR PROCEDURES Final Resu lt documented in this encounter Visit Diagnoses Not on filedocumented in this encounter Additional Health Concerns Infection Onset Date Last Indicated Resolved Time COVID-19 Rule-Out 02/02/2022 02/02/2022 02/02/2022 2:26 PM EDT documented as of this encounter Care Teams Turf Sales Person Relationship Specialty Start Date End Date Emily Covington APRN [address] [place] [address] PCP - General 01/22/21 11/22/23 documented as of this encounter
--- OUTSIDE RECORDS SUMMARY | 2025-04-25 08:14 | XMS_ITS | Clinical Summary ---
[facility] Address [address] [place] [address] Care Team Providers Care Amusement Park Entertainer Name Role Phone Provider, No Known Primary Care Provider Unavail able Allergies Active Allergy Reactions Criticality Noted Date Comments Amoxicillin-Pot Clavulanate Hives 02/01/20 22 Medications diclofenac (VOLTAREN) 50 MG EC tablet Take 1 tablet by mouth 3 (Three) Times a Day. 15 tablet 2 Active ondansetron ODT (ZOFRAN-ODT) [address] 1 tablet on the tongue Every 8 (Eight) Hours As Needed for Nausea. 12 tablet 2 Active Social History Tobacco Use Types Packs/Day Years Used Date Smoking Tobacco: Never Assessed Abuse Screen Answer Date Recorded Unsafe at Home or Work/School Not on file Feels Threatened by Someone? Not on file 06/2023 Does Anyone Keep You from Co ntacting Others or Doint Things Outside the Home? Not on file 06/20/2023 Physical Sign of Abuse Present Not on file 1 Housing Stability Answer Date Recorded Current Living Arrangements Not on file 06/11 Potentially Unsafe Housing Conditions Not on louise e 06/20/2023 Family and Community Support Answer Driss e Recorded Help with Day-to-Day Activities Not on file 06/20/2023 Lonely or Isolated Not on file 06/20/2023 Employment Answer Date Recorded Do you want help finding or keeping work or a oksana b? Not on file 06/20/2023 Disabilities Answer Date Recorded Concentrating, Remembering, or Making Decisions Difficulty Not on file 06/20/2023 Doing Errands Independently Difficulty Not on fi le 06/20/2023 Education Answer Date Recorded Help with school or training? Not on file Preferred Language Not on file 06/20/2023 Comments No Sex and Gender Information Value Date Recorded Sex Assigned at Not on file Legal Sex Female 1:44 PM EDT Gender Identity Not on file Sexual Orientation Not on file Last Filed Vital Signs Vital Sign Reading Time Taken Comments Blood Pressure 122/71 01/31/2022 5:30 PM EDT Pulse 112 01/31/2022 2:57 PM EDT Temperature 37.3 C (99.2 F) 01/31/2022 2:57 PM EDT Respiratory Rate 17 01/31/2022 2:57 PM EDT Oxygen Saturation 100% 01/31/2022 2:57 PM EDT Inhaled Oxygen Concentration - - Weight 83 kg (183 lb) 01/31/2022 2:57 PM EDT Height 154.9 cm (5' 1 ) 01/31/2022 2:57 PM EDT Body Mass Index 34.58 01/31/2022 2:57 PM EDT Plan of Treatment Health Maintenance Due Date Last Done Comments ANNUAL PHYSICAL 1995 Annual Gynecologic Pelvic an d Breast Exam 1995 HEPATITIS C SCREENING 1995 COVID-19 Vaccine (2023-2 5 season) 2024 08/04/2021, 10/09/2020, 09/18/2020 INFLUENZA VACCINE 06/11/2025 06/25/2018, 07/07/2017 TDAP/TD VACCINES (3 - Td or Tdap) 02/12/2031 02/12/2021, 11/15/2007 Pneumococcal Vaccine 0-49 Aged Out No longer eligible based on patient's age to complete this topic Insurance [facility] PPO Care Teams Amusement Park Entertainer Relationship Specialty Start Date End Date Provider, [place] [address] PCP - General 01/31/22
[2025-04-25 08:50] LABS: Hemoglobin A1C 5.0 % (4.0-6.0)
[2025-04-25 09:48] LABS: Thyroid Stimulating Hormone 1.41 uIU/mL (0.465-4.68)
[2025-04-26 04:09] LABS: Insulin Level Total 21.8 uIU/mL (2.6-24.9)
[2025-04-26 05:13] LABS: FSH 5.1 mIU/mL (.); Testosterone,Total 45 ng/dL (13-71)
== END 2025-04-25 23:59 | disposition home or self-care (01) ==
LOC: LAB 08:08
PROVIDERS: PCP Nurse Practitioner Family; Visit Provider Obstetrics & Gynecology
DX: N80.9 Endometriosis, unspecified (principal); N30.10 Interstitial cystitis (chronic) without hematuria; Z98.51 Tubal ligation status; E34.9 Endocrine disorder, unspecified
CPT/HCPCS: 36415; 82670; 83001; 83036; 83525; 84403; 84443

== ENCOUNTER 2025-05-19 15:52 | Outpatient (CLI) | payer OTHER, SELFPAY ==
--- OUTSIDE RECORDS SUMMARY | 2025-05-19 15:55 | XMS_ITS | Clinical Summary ---
[facility] Address [address] [place] [address] Care Team Providers Care Seed Service Advisor Name Role Phone Provider, No Known Primary [...] 1995 HEPATITIS C SCREENING 1996 COVID-19 Vaccine (2024-2 6 season) 2025 08/04/2021, 10/09/2020, 09/18/2020 INFLUENZA VACCINE 06/11/2025 06/25/2018, 07/07/2017 TDAP/TD VACCINES (3 - Td or Tdap) 02/12/2031 02/12/2021, 11/15/2007 Pneumococcal Vaccine 0-49 Aged Out No longer eligible based on patient's age to complete this topic Insurance [facility] PPO Care Teams Seed Service Advisor Relationship Specialty Start Date End Date Provider, [place] [address] PCP - General 01/31/22
--- OUTSIDE RECORDS SUMMARY | 2025-05-19 15:55 | XMS_ITS | Encounter Summary ---
Author Organization Healthcare Address [address] [place] [address] Care Team Providers Care Artist Model Name Role Phone Emily Covington APRN Primary Care Provider [phone] Encounter Details Date Type Department Care Team (Late st Contact Info) Description 10/22/2021 Outside Procedure External Location [address] [place] [address] Caitlin Reeves, DO [address] [place] [address] Social History Tobacco Use Types Packs/Day Years [...] PM EST Narrative 10/22/2021 4:51 PM EST [address] [address] Name: CALEB BYRNE Exam Date: 10/22/2021 : 1995 Age 26 Gender: F Physician: CAITLIN REEVES Facility: [facility] Facility HSV: Outpatient Exam: FOOT RT [...] Thank you for referring CALEB BYRNE to [facility]. Legally authenticated by ARIANNA VENEGAS 2021-10-22 16:36:24 Procedure Note Provider, Generic [place] - 10/22/2021 [place] [address] Name: CALEB BYRNE Exam Date: 10/22/2021 : 1995 Age 26 Gender: F Physician: CAITLIN REEVES Facility: [facility] Facility HSV: Outpatient Exam: FOOT RT [...] Thank you for referring CALEB BYRNE to [facility]. Legally authenticated by ARIANNA VENEGAS 2021-10-22 16:36:24 us Caitlin Reeves DO IMG XR PROCEDURES Final Resu lt documented in this encounter Visit Diagnoses Not on filedocumented in this encounter Additional Health Concerns Infection Onset Date Last Indicated Resolved Time COVID-19 Rule-Out 02/02/2022 02/02/2022 02/02/2022 2:26 PM EDT documented as of this encounter Care Teams Artist Model Relationship Specialty Start Date End Date Emily Covington APRN [address] [place] [address] PCP - General 01/22/21 11/22/23 documented as of this encounter
--- OUTSIDE RECORDS SUMMARY | 2025-05-19 15:55 | XMS_ITS | Clinical Summary ---
Author Organization Healthcare Address [address] [place] [address] Care Team Providers Care Professor Of Special Education Name Role Phone Unavailable Primary Care Provider [...] Influenza, injectable, quadrivalent, preservativ e free 06/25/2018 [employer] COVID-19 Vaccine (Purple Cap) 12 + 10/09/2020 [...] [facility]-Adult SDOH Screenings 2014 [facility]-Pap Smear 2017 [id number] Vaccine ( season) 2025 08/04/2021, 10/09/2020, 09/18/2020 [facility]-Influenza Vaccine (#1) 05/12/202506/11, [...] age to complete [place] [address] [facility]
--- OUTSIDE RECORDS SUMMARY | 2025-05-19 15:55 | XMS_ITS | Patient Health Record ---
Author Organization [facility] Address [address] [facility] [address] [place] [address] Care Team Providers Care Utility Worker Driver Name Role Phone Alexa Fowler Unavailable [phone] Allergies Allergen (clinical drug ingredient) Drug/Non Drug [...] WITH FOOD OR MILK Oral; Duration: 30 Not-Taking/OK N Levocetirizine Dihydrochloride 5 MG Tablet 1 [...] Status W/U Status Risk Notes Problem Obesity (986664462) Obesity (BMI 35.0-39.9 without comorbidity) (E66.9) Active confirmed Plan Of Treatment No Information Insurance Providers Payer Name Payer Address Payer Phone Subscriber Number Group Number Insured Name Patient Relationship to Insured Coverage Start Date Coverage End Date Chrystal PPO [address] [place] [address] [id number] Len Foss Spouse - patient is the spouse of the insured Medical (General) History Medical History History ICD Code Anxiety Depression Blood Transfusion Kidney Stones Surgical History Surgery Date(Month/Year) Gallbladder Removed Appendectomy Laparoscope
--- OUTSIDE RECORDS SUMMARY | 2025-05-19 15:55 | XMS_ITS | Patient Health Record ---
Author Organization [facility] Address [address] [place] [address] Care Team Providers Care Global Professional Name Role Phone Unknown, PCP Primary Care Provider Unavailabl e Reason For Referral No Information Medications Medication SIG (Take, Route, Frequency, Duration) Notes Start Date End Date Status Wellbutrin SR 150 MG 1 tab po daily Active Michelle Allergy *Please review a nd pick correct strength-formulation from [employer] options. If intended option is not shown, discontinue and re-order from Quick Search* Active busPIRone HCl 10 MG 1 tab(s) orally 2 times a day Active Plan Of Treatment No Information Insurance Providers Payer Name Payer Address Payer Phone Subscriber Number Group Number Insured Name Patient Relationship to Insured Coverage Start Date Coverage End Date [facility] [address] [place] [address] [id number] EA Pratima Pérez Self - patient is the insured Medical (General) History Surgical History Surgery Date(Month/Year) bilateral tubal gallbladder appy
--- NOTE | 2025-05-19 16:00 | MR_ITS ---
PROCEDURE INFORMATION: Exam: MR Pelvis Without Contrast Exam date and time: 05/19/2025 4:04 PM Age: 29 years old Clinical indication: Vaginal pain; Additional info: Evaluation of vaginal nerves, left sided vaginal pain TECHNIQUE: Imaging protocol: Magnetic resonance imaging of the pelvis without contrast. COMPARISON: CT ABDOMEN PELVIS WO/W CON 03/03/2025 12:12 PM FINDINGS: Intraperitoneal space: No free fluid. Urinary bladder: Bladder is unremarkable. Reproductive: Unremarkable. Lymph nodes: No enlarged nodes. Bones/joints: Unremarkable. No suspicious lesions. No acute fractures. Soft tissues: Unremarkable. No mass. IMPRESSION: Unremarkable pelvis. Evaluation of the pelvic nerves is limited, however, there is no evident abnormality.
== END 2025-05-19 23:59 | disposition home or self-care (01) ==
LOC: RAD 15:53
PROVIDERS: PCP Nurse Practitioner Family; Visit Provider Obstetrics & Gynecology
DX: N90.89 Other specified noninflammatory disorders of vulva and perineum (principal); R10.2 Pelvic and perineal pain
CPT/HCPCS: 72195